=== PATIENT | female | born 1940 | race Caucasian/White ===

== ENCOUNTER 2018-09-27 07:20 | Day surgery (SDC) | payer BC ==
[2018-09-22 16:51] VITALS: BMI 29.0
[2018-09-27] MEDS ORDERED: PROPOFOL 20 ML ONE ×2 (07:46)
[2018-09-27] MEDS ORDERED: LIDOCAINE HCL/PF 2% SDV 5ML VIAL ONE (08:15)
[2018-09-27] MEDS ORDERED: GLUCAGON 1 MG KIT ONE (08:41)
[2018-09-27 09:42] VITALS: TEMP 98
[2018-09-27 10:24] VITALS: BP 119/52; PULSE 60
--- NOTE | 2018-09-29 16:37 | PATH ---
Surgical Pathology Report Patient Name: ANDRÉS ALLEN [facility]. Rec. #: [id number] /Age/Gender: 1940 (Age: 78) / F Account: [id number] Location: [facility] Taken: 09/27/2018 Received: 09/27/2018 Reported: 09/29/2018 Physicians: Nolan Henderson M.D. Specimen(s) Received A: HOT SNARE POLYPECTOMY CECUM B: BX POLYP DESCENDING COLON Clinical History Constipation Postoperative diagnosis: Polyps, sigmoid stricture, diverticulosis Final Diagnosis A. CECUM, POLYP, POLYPECTOMY: TUBULAR ADENOMA. B. DESCENDING COLON, POLYP, BIOPSY: HYPERPLASTIC POLYP. Electronically Signed Clementina Peña M.D. Gross Description A. Received in formalin, labeled "hot snare polypectomy cecum " is a vidal, irregular portion of soft tissue measuring 0.3 cm. in greatest dimension. The specimen is submitted in toto in one cassette. B. Received in formalin, labeled "biopsy polyp descending colon" is a vidal, irregular portion of soft tissue measuring 0.4 cm. in greatest dimension. The specimen is submitted in toto in one cassette. /09/28/2018 saudi09/28/2018
== END 2018-09-27 10:15 | disposition home or self-care (01) ==
LOC: FASU-ENDO 07:20
PROVIDERS: ATTEND Internal Medicine Gastroenterology
PROC: 0DBH8ZX Excision of Cecum, Via Natural or Artificial Opening Endoscopic, Diagnostic (ICD-10-PCS; 2018-09-27)
PROC: 0DBM8ZX Excision of Descending Colon, Via Natural or Artificial Opening Endoscopic, Diagnostic (ICD-10-PCS; principal; 2018-09-27 08:31)
DX: D12.0 Benign neoplasm of cecum (principal); K63.5 Polyp of colon; K59.00 Constipation, unspecified; K57.30 Diverticulosis of large intestine without perforation or abscess without bleeding; K58.8 Other irritable bowel syndrome
CPT/HCPCS: 88305-TC

== ENCOUNTER 2018-10-31 09:42 | Inpatient (IN) | payer BC ==
[2018-10-30 16:18] VITALS: BMI 26.6
[2018-10-31] MEDS ORDERED: ERTAPENEM SODIUM 1 GM in SODIUM CHLORIDE 50 ML IVPB ONE (10:16)
[2018-10-31] MEDS ORDERED: ERTAPENEM SODIUM 1 GM VIAL ONE (10:19)
[2018-10-31] MEDS ORDERED: KETOROLAC TROMETHAMINE 30 MG/1 ML VIAL ONE (10:37)
[2018-10-31] MEDS ORDERED: DEXAMETHASONE SOD PHOSPHATE 4 MG/1 ML VIAL ONE ×2 (10:37→13:39)
[2018-10-31] MEDS ORDERED: LIDOCAINE HCL/PF 2% SDV 5ML VIAL ONE ×2 (10:37→12:32)
[2018-10-31] MEDS ORDERED: ONDANSETRON 4 MG/2 ML VIAL ONE ×2 (10:37→17:25)
[2018-10-31] MEDS ORDERED: ROCURONIUM BROMIDE 50 MG/5 ML VIAL ONE ×2 (10:38→12:04)
[2018-10-31] MEDS: ALVIMOPAN 12 MG CAP PO SCH ×2 (11:00→23:56)
[2018-10-31] MEDS ORDERED: PROPOFOL 20 ML ONE ×2 (11:29→13:56)
--- NOTE | 2018-10-31 11:37 | HP ---
History & Physical Update - History History: No Change - Physical Physical: No Change - Assessment Assessment: No Change - Plan Plan: No Change
[2018-10-31] MEDS ORDERED: MIDAZOLAM HCL 2 MG/2 ML SINGLE DOSE VIAL ONE (11:47)
[2018-10-31] MEDS ORDERED: ERTAPENEM SODIUM 1 GM VIAL IVPB ONE (12:12)
[2018-10-31] MEDS ORDERED: GLYCOPYRROLATE 0.2 MG/1 ML VIAL ONE ×2 (12:16→13:51)
[2018-10-31] MEDS ORDERED: METOPROLOL TARTRATE 5 MG/5 ML VIAL ONE (12:16)
[2018-10-31] MEDS ORDERED: KETAMINE HCL 200 MG/20 ML VIAL ONE (12:27)
[2018-10-31] MEDS ORDERED: ONDANSETRON 4 MG/2 ML VIAL IVPUSH PRN (12:54)
[2018-10-31] MEDS ORDERED: LACTATED RINGERS SOLUTION 1,000 ML IV SCH (13:00)
[2018-10-31] MEDS ORDERED: HYDROmorphone *PCA* 10MG/50ML DISP.SYRIN PCA SCH (13:00)
[2018-10-31] MEDS ORDERED: NEOSTIGMINE METHYLSULFATE 0.5 MG/ML - 10 ML MDV ONE (13:51)
[2018-10-31] MEDS ORDERED: HYDROmorphone *PCA* 10MG/50ML DISP.SYRIN PCA ONE (14:18)
[2018-10-31] MEDS ORDERED: ePHEDrine SULFATE 50 MG/1 ML AMPULE ONE (14:35)
[2018-10-31] MEDS ORDERED: SODIUM CHLORIDE 0.9% P/F 10 ML VIAL IJ ONE (14:36)
[2018-10-31] MEDS ORDERED: ACETAMINOPHEN 1000 MG/100 ML VIAL (NON FORMULARY) IVPB ONE (15:21)
--- NOTE | 2018-10-31 15:26 | OP ---
Operative Note - Note: Operative Date: 10/31/18 Pre-Operative Diagnosis: colovesical fistula Operation: sigmoid colon resection with take down of colovesical fistula Surgeon: Torey Brown Electrical Instrument Maker: Rosanne Smith Anesthesiologist/SUPERVISOR COKE HANDLING: Vincent Mcintosh Anesthesia: General Specimens Removed: sigmoid colon Estimated Blood Loss (mls): 250 Drains, Volume Out (mls): 200 (sebastian) Fluid Volume Replaced (mls): 2,000 Operative Report Dictated: Yes
[2018-10-31] MEDS ORDERED: ACETAMINOPHEN INJECTION 100 ML IVPB ONE (15:35)
[2018-10-31] MEDS ORDERED: PIPERACILLIN/TAZOB 3.375 GM 3.375 GM in DEXTROSE 5%-WATER - 50 ML IVPB ONE (15:43)
--- NOTE | 2018-10-31 16:04 | CONSULT ---
Consultation: REQUESTING PROVIDER: Surgery team CONSULT REQUEST: We have been asked to medically evaluate this patient for (HTN) . 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 pt was schedulled for elective Surgery. Per Brother pt dis not have any headache , blurry vision , chest pain , N/V/D but she complains of chronic constipation Per brother no palpitation , sob , dysuria or hematuria , leg swelling was reported but he reports loss of appetite and 15 pounds weight loss. No recent travel and no sick contact POD#0 Vitals on my present HR 47, BP 124/38 MAP 61 , O2 sat 100% nonrebreathable mask , # PMHx : HTN # PSHx: unknown # Allergies : NKDA #Meds: Atenolol, Vit D , Chlorthalidone and norvasc # Social hx : denies any drugs , alcohol or tobacco , lives with her son and his girl friend , retired , worked office job in the past. # FHx: mother at 99 normal aging , father : unkown , has 2 sibling both are healthy with no medical conditions REVIEW OF SYSTEMS: unable to obtain as of now as pt still sleepy PHYSICAL EXAMINATION Vital Signs - 24 hr 10/31/18 10:38 Temperature 97.5 F L Pulse Rate 50 L Respiratory 16 Rate Blood Pressure 139/55 L O2 Sat by Pulse 98 Oximetry (%) GENERAL: Awake, alert, following comands sleepy , waking up from anesthesia in recover room HEAD: Normal with no signs of trauma. EYES: DEAN , sclera anicteric, conjunctiva clear. EARS, NOSE, THROAT: dry mucous membranes. NECK: , supple LUNGS: Breath sounds equal, clear to auscultation bilaterally.anteriorly , no wheezing HEART: sinus susan , normal S1 and S2 without murmur, rub or gallop. ABDOMEN: Soft, not distended, normoactive bowel sounds, no guarding, longitudinal mid line surgery covered with gauze LOWER EXTREMITIES: 2+ pulses, warm, well-perfused. No calf tenderness. No peripheral edema. NEUROLOGICAL: sleepy following commands , DEAN . no focal deficit Laboratory Results - last 24 hr 10/31/18 10/31/18 09:54 10:50 Blood Type A POSITIVE A POSITIVE Antibody Screen Negative Active Medications Generic Name Dose Route Start Last Admin Trade Name Vicq PRN Reason Stop Dose Admin Acetaminophen 1,000 mg 10/31/18 22:00 Ofirmev Injection - IVPB 11/01/18 10:01 Q6H CRAIG Alvimopan 12 mg 10/31/18 11:00 10/31/18 11:00 Entereg Capsule (Restricted) - PO 12 mg BID CRAIG Administration Amlodipine Besylate 5 mg 10/31/18 22:00 Norvasc - PO HS CRAIG Atenolol 50 mg 10/31/18 22:00 Tenormin - PO HS CRAIG Chlorthalidone 25 mg 10/31/18 22:00 Hygroton - PO HS CRAIG Enoxaparin Sodium 30 mg 11/01/18 10:00 Lovenox - SQ DAILY CRAIG Fentanyl 25 mcg 10/31/18 12:54 Sublimaze Injection - IVPUSH [id number] PRN PAIN-PACU ORDER X 4 DOSES ONLY Hydromorphone HCl 10 mg 10/31/18 13:00 Dilaudid Inspector Line - WORK ORDER CLERK 11/07/18 12:54 WORK ORDER CLERK CRAIG Protocol Lactated Ringer's 1,000 mls @ 75 mls/hr 10/31/18 13:00 Lactated Ringers Solution IV ASDIR CRAIG Piperacillin Sod/Tazobactam 50 mls @ 100 mls/hr 10/31/18 15:43 Sod 3.375 gm/ Dextrose IVPB 10/31/18 16:12 ONCE ONE Protocol Ondansetron HCl 4 mg 10/31/18 12:54 Zofran Injection IVPUSH Q6H PRN NAUSEA AND/OR VOMITING ASSESSMENT/PLAN: 78 year old female with h.o HTN and one month of LLQ abdominal pain was fpound to have colovesicular fistula presented to hospital for elective surgery Sigmoidectomy and colovesicular resection. we were consulted to manage HTN. # POD# 0 , * S/P Sigmoidectomy and colovesicular resection , lost 250 CC blood and received 2 L RL fluids , Spencerron Dr Lema * NPO till pass flatus * IV fluids per surgery team LR@ 75 CC/hr , received 2 L RL in OR and 500 LR Bolus in Paccu room , continue with maintenance fluids. * Abx prophylaxis per surgery team , Zosyn one time and Ertapinim once * Zofran for Nausea , EKG ordered to check QTC * Pain meds per surgery WORK ORDER CLERK Dilauded, Febtanyl injection and Tylenol IV as needed * Monitor I& O , sebastian in place , daily weight , urine out put 200 CC so far * * # HTN , #susan cardia 47 hr * normotensive during the procedure and in recovery room * hold BB as pt is susan cardic till HR > 90 * Hold diuretics chlorthalidone for the first 24 hours * hold norvasc 5 mg po daily , resume if bp > 150/90 # FEN * RL @ 75 CC and boluses as needed to maintain BP * E: monitor lytes * N: NPO till pass flatus except meds with sip of water # Proph * DVTS: Lovenox 30 mg SQ daily #Dispo * M/S # Full code next of kin is her son Dilip Ortega [phone] Dispo: We will continue to follow the patient. Thank you for this consultative opportunity. Visit type - Emergency Visit Emergency Visit: Yes ED Registration Date: 10/31/18 Care time: The patient presented to the Emergency Department on the above date and was hospitalized for further evaluation of their emergent condition. - New Patient This patient is new to me today: Yes Date on this admission: 10/31/18 - Critical Care Critical Care patient: No
--- NOTE | 2018-10-31 17:22 | PN ---
Teaching Attending Note Name of Resident: Stephen Bangura ATTENDING PHYSICIAN STATEMENT I saw and evaluated the patient. I reviewed the resident's note and discussed the case with the resident. I agree with the resident's findings and plan as documented. SUBJECTIVE: Drowsy post-op but rousable to O x 3. No complaints. Pain well controlled. OBJECTIVE: Afebrile, Bradycardic, Hemodynamically Stable. Last Vital Signs Temp Pulse Resp BP Pulse Ox 97.5 F L 47 L 13 139/53 L 100 10/31/18 10:38 10/31/18 15:14 10/31/18 15:14 10/31/18 15:14 10/31/18 15:14 HEENT- Atraumatic, Normocephalic. Heart - S1, S2, Sergei Lungs - decreased air entry at bases Abdomen - Midline laparotomy site dressed. Extremities - No edema, no calf tenderness Laboratory Results - last 24 hr 10/31/18 10/31/18 09:54 10:50 Blood Type A POSITIVE A POSITIVE Antibody Screen Negative Current Medications Generic Name Dose Route Start Last Admin Trade Name Freq PRN Reason Stop Dose Admin Acetaminophen 1,000 mg 10/31/18 22:00 Ofirmev Injection - IVPB 11/01/18 10:01 Q6H CRAIG Alvimopan 12 mg 10/31/18 11:00 10/31/18 11:00 Entereg Capsule (Restricted) - PO 12 mg BID CRAIG Administration Amlodipine Besylate 5 mg 11/01/18 10:00 Norvasc - PO DAILY CRAIG Enoxaparin Sodium 30 mg 11/01/18 10:00 Lovenox - SQ DAILY CRAIG Fentanyl 25 mcg 10/31/18 12:54 Sublimaze Injection - IVPUSH [id number] PRN PAIN-PACU ORDER X 4 DOSES ONLY Hydromorphone HCl 10 mg 10/31/18 13:00 10/31/18 15:20 Dilaudid [employer] Salesperson - BLADE BENDER FURNACE TENDER 11/07/18 12:54 10 mg BLADE BENDER FURNACE TENDER CRAIG Administration Protocol Lactated Ringer's 1,000 mls @ 75 mls/hr 10/31/18 13:00 10/31/18 15:20 Lactated Ringers Solution IV 0 mls ASDIR CRAIG Administration Ondansetron HCl 4 mg 10/31/18 12:54 Zofran Injection IVPUSH Q6H PRN NAUSEA AND/OR VOMITING Home Medications Medication Instructions Recorded Amlodipine Besylate [Norvasc -] 5 mg PO HS 10/31/15 Atenolol/Chlorthalidone 1 each PO HS 10/31/15 [Atenolol-Chlorthalidone 50-25] Cholecalciferol (Vitamin D3) 2 cap PO HS 10/31/15 [Vitamin D3] ASSESSMENT AND PLAN: 78 year old female with history of HTN, admitted s/p elective Colovesicular Fistula repair by Surgery. Medicine consulted for medical management of HTN. 1. HTN - normally on Atenolol, Chlorthalidone, Norvasc Currently bradycardic - hold BB Will hold Chlorthalidone in favor of gentle IV hydration bailee-operatively. Continue Norvasc. 2. Colovesicular Fistula s/p Repair Currently post-op s/p sigmoidectomy and colovesicular resection NPO, IV Fluids Abx prophylaxis as per Surgery/ID Pain medications as per Surgery - on Dilaudid BLADE BENDER FURNACE TENDER Incentive Spirometry and DVT Px with Lovenox. Thank you for the kind consideration of this consultation. The medicine service will be happy to follow for BP management.
[2018-10-31] MEDS ORDERED: PROMETHAZINE HCL 25 MG/1 ML VIAL ONE (17:53)
[2018-10-31] MEDS ORDERED: PROMETHAZINE HCL 25 MG/1 ML VIAL IVPB PRN (18:52)
[2018-10-31] MEDS ORDERED: SODIUM CHLORIDE 500 ML IV ONE (19:00)
--- NOTE | 2018-10-31 20:30 | SURG ---
Surgery Medicaid Eligibility Specialist Note Medicaid Eligibility Specialist: Rosanne Smith PA-C Date of Service: 10/31/18 Diagnosis: colovesicular fistula, sigmoid diverticulitits Procedure: sigmoid colon resection with colovesicular fistula takedown I was present for the entirety of the operative procedure. For further detail, please refer to operative report. Visit type - Case Type Case Type: Scheduled - Emergency Emergency Visit: No - New patient This patient is new to me today: Yes Date on this admission: 10/31/18 - Critical Care Critical Care patient: No
[2018-10-31 20:37] LABS: BASO % 0.1 % (0-2.0); HEMATOCRIT 27.7 % (32.4-45.2); HEMOGLOBIN 8.7 GM/dL (10.7-15.3); LYMPH % 2.6 % (8-40); MCH 28.7 pg (25.7-33.7); MCHC 31.5 g/dl (32.0-36.0); MEAN CELL VOLUME 91.2 fl (80-96); MEAN PLT VOLUME 7.7 fl (7.5-11.1); MONO % 4.8 % (3.8-10.2); NEUT % 92.5 % (42.8-82.8); PLATELET COUNT 284 K/MM3 (134-434); RBC 3.03 M/mm3 (3.60-5.2); RDW 14.4 % (11.6-15.6); WHITE BLOOD COUNT 23.2 K/mm3 (4.0-10.0)
[2018-10-31 21:06] LABS: ALBUMIN 2.6 g/dl (3.4-5.0); BILIRUBIN,TOTAL 0.4 mg/dL (0.2-1); CALCIUM 8.6 mg/dL (8.5-10.1); CREATININE 1.4 mg/dL (0.55-1.3); POTASSIUM 3.6 mmol/L (3.5-5.1)
--- NOTE | 2018-10-31 21:39 | OP ---
DATE OF OPERATION: 10/31/2018 PREOPERATIVE DIAGNOSIS: Colovesical fistula secondary to sigmoid perforation. POSTOPERATIVE DIAGNOSIS: Colovesical fistula secondary to sigmoid perforation. OPERATIVE PROCEDURE: Exploratory laparotomy, sigmoid colectomy, left tubo-ovarian cystectomy, inspection of the bladder, and end-to-end anastomosis of the left colon. SURGEON: Torey Brown MD HELP DESK OPERATOR: LEANNA Lay ANESTHESIA: General endotracheal intubation. INDICATION FOR PROCEDURE: This 78-year-old female was admitted complaining of fecal discharge from the urine, and patient had a preoperative CAT scan that revealed a diverticular abscess perforating under the bladder. With this, the patient was brought to the operating room after preparation was done with GoLYTELY. Patient was given intravenous antibiotics. Abdomen was prepped and draped. Midline incision was made, and examination revealed a large mass of the left colon, sigmoid colon which was penetrating into the bladder. Also, the ovary of the left side was found to be incorporated with the tube and this mass. Lateral dissection of the left colon was done, sigmoid colon, and then, care was taken to avoid any injury to the ureter which was clearly identified. Part of the mass was dissected away from the colon and kept in the field of vision all the time. Following this, the dissection was done of the peritoneum, and the dissection was carried down to the rectum. Again, the colon, which was adherent to the bladder, was removed, and the bladder was distended with 0.5 L of saline to make sure there was no obvious leak, which was not seen. The left ovary and the tube was found to be part of the mass, and so, it was taken at the fundus of the uterus and incorporated and part of the mass. Then, the sigmoid colon was divided using a MADHU, and then, the dissection was done anterior to the sacrum. It was lifted away from the sacral promontory, and it was divided at the rectum level where the colon was found to be of normal histology. Once it was divided, the specimen was sent out, and the other part of the colon which was the proximal colon, which was stapled, was opened. The left colon was mobilized a little bit more to prevent any tension. An end-to-end anastomosis was done with 2-0 Vicryl interrupted, and a non-crushing clamp was used of the colon to prevent any spillage, which was opened. A piece of the omentum was wrapped around the anastomosis, and after adequate hemostasis, abdominal wall was closed with number 1 running suture and the skin with de. Estimated blood loss was about 250 mL. No complications were encountered, and patient went to the recovery room in stable condition. Jing [id number]
[2018-10-31] MEDS ORDERED: PT OWN MED DRAWER 7, Y5N ONE (21:56)
[2018-10-31] MEDS ORDERED: CHLORTHALIDONE 25 MG TABLET PO SCH (22:00)
[2018-10-31] MEDS ORDERED: amLODIPine BESYLATE 5 MG TABLET (FP) PO SCH (22:00)
[2018-10-31] MEDS ORDERED: ATENOLOL 25 MG TABLET (FP) PO SCH (22:00)
[2018-10-31] MEDS ORDERED: DEXTROSE 5%-WATER - 50 ML IVPB ONE (22:36)
[2018-10-31] MEDS ORDERED: PIPERACILLIN/TAZOBACTAM 3.375 GM VIAL IVPB ONE (22:36)
[2018-10-31] MEDS: ACETAMINOPHEN 1000 MG/100 ML VIAL (NON FORMULARY) IVPB SCH (22:44)
[2018-10-31] MEDS: PIPERACILLIN/TAZOB 3.375 GM 3.375 GM in DEXTROSE 5%-WATER - 50 ML IVPB SCH (22:44)
[2018-11-01] MEDS ORDERED: DEXTROSE 5%-WATER - 50 ML IVPB ONE ×3 (01:02→17:48)
[2018-11-01] MEDS ORDERED: PIPERACILLIN/TAZOBACTAM 3.375 GM VIAL IVPB ONE ×3 (01:02→17:48)
[2018-11-01] MEDS: PIPERACILLIN/TAZOB 3.375 GM 3.375 GM in DEXTROSE 5%-WATER - 50 ML IVPB SCH ×3 (01:15→17:52)
[2018-11-01] MEDS: ACETAMINOPHEN 1000 MG/100 ML VIAL (NON FORMULARY) IVPB SCH ×2 (04:40→10:22)
[2018-11-01 07:20] LABS: HEMOGLOBIN 7.9 GM/dL (10.7-15.3); MCH 29.6 pg (25.7-33.7); MCHC 33.1 g/dl (32.0-36.0); MEAN CELL VOLUME 89.6 fl (80-96); MEAN PLT VOLUME 7.5 fl (7.5-11.1); PLATELET COUNT 240 K/MM3 (134-434); RBC 2.68 M/mm3 (3.60-5.2); RDW 14.3 % (11.6-15.6); WHITE BLOOD COUNT 19.3 K/mm3 (4.0-10.0)
[2018-11-01 07:47] LABS: CALCIUM 8.5 mg/dL (8.5-10.1); CREATININE 1.8 mg/dL (0.55-1.3); MAGNESIUM 1.7 mg/dL (1.8-2.4); PHOSPHOROUS 5.6 mg/dL (2.5-4.9)
--- NOTE | 2018-11-01 08:13 | SPA.POSTOP ---
- POST-OP NOTE POD #1 s/p sigmoid colon resection with colovesicula fistula take-down No acute events since surgical procedure per RN notes. RN informs me that no urine output overnight. Patient resting comfortably. States she has minimal pain therefore she hasn't used her CAP MAKER. Hasn't been OOB yet. Denies n/v/f/c, CP or SOB. Last Vital Signs Temp Pulse Resp BP Pulse Ox 97.8 F 48 L 18 102/38 L 96 11/01/18 06:00 11/01/18 06:00 11/01/18 06:00 11/01/18 06:00 11/01/18 04:21 CBC, BMP 11/01/18 06:42 11/01/18 06:42 OUTPUT 10/31/18 11/01/18 23:40 06:00 Sebastian 0 200 PE General: No acute distress. Pulm: CTA bilat Cor: RRR Abd: Soft. Dressing c/d/i. Bowel sounds absent : sebastian to gravity (clear) LE: Soft, non-tender bilat. SCD's bilat. Problem List - Problems (1) Colovesical fistula Assessment/Plan: POD #1 s/p Colovesical fistula takedown, sigmoid resection w/ handsewn anastamosis. Goals for today: 1. OOB and ambulate 2. Re-evaluate pain AFTER she ambulates...if minimal pain, we can dc CAP MAKER and begin IV prn management. 3. Monitor Urine output 4. Increased IVF to 150mL/hr 5. GI PPX 6. Monitor H/H - CBC in AM ordered 7. DVT PPX via SQ Lovenox & SCDs 8. Cont Entereg 12 mg PO BID (dc once pt passes flatus or receives max of 15 doses) 9. Await for bowel function to be restored prior too beginning clear liquid diet. 10. f/u repeat AXR (post-op film didn't include entire abd/pelvis) Above plan discussed with Dr. Brown and agrees Code(s): N32.1 - VESICOINTESTINAL FISTULA Visit type - Case Type Case Type: Scheduled - New patient This patient is new to me today: Yes Date on this admission: 11/01/18
[2018-11-01] MEDS ORDERED: MAGNESIUM SULF 50% (8.12 MEQ/2 ML-1 GM VIAL) IVPB ONE (09:15)
[2018-11-01] MEDS ORDERED: SODIUM CHLORIDE 500 ML IV STA (09:42)
[2018-11-01] MEDS ORDERED: amLODIPine BESYLATE 5 MG TABLET (FP) PO SCH (10:00)
[2018-11-01] MEDS ORDERED: ENOXAPARIN NA (PORCINE) 30 MG/0.3 ML DISP.SYRIN SQ SCH (10:00)
--- NOTE | 2018-11-01 10:15 | CON.ID ---
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 pt was schedulled for elective Surgery. 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 TEENAGER Home Medications - Allergies Allergies/Adverse Reactions: Allergies Allergy/AdvReac Type Severity Reaction Status Date / Time No Known Drug Allergies Allergy Verified 10/31/18 10:40 ciprofloxacin [From Cipro] AdvReac Intermediate Verified 10/31/18 10:41 - Home Medications Home Medications: Ambulatory Orders Amlodipine Besylate [Norvasc -] 5 mg PO HS 10/31/15 Atenolol/Chlorthalidone [Atenolol-Chlorthalidone 50-25] 1 each PO HS 10/31/15 Cholecalciferol (Vitamin D3) [Vitamin D3] 2 cap PO HS 10/31/15 Review of Systems - Review of Systems Constitutional: reports: No Symptoms Eyes: reports: No Symptoms HENT: reports: No Symptoms Neck: reports: No Symptoms Cardiovascular: reports: No Symptoms Respiratory: reports: No Symptoms Gastrointestinal: reports: Abdominal Pain Genitourinary: reports: No Symptoms Musculoskeletal: reports: No Symptoms Integumentary: reports: No Symptoms Neurological: reports: No Symptoms Endocrine: reports: No Symptoms Hematology/Lymphatic: reports: No Symptoms Psychiatric: reports: No Symptoms Physical Exam Vital Signs: Vital Signs Temperature 97.8 F 11/01/18 06:00 Pulse Rate 48 L 11/01/18 06:00 Respiratory Rate 18 11/01/18 06:00 Blood Pressure 102/38 L 11/01/18 06:00 O2 Sat by Pulse Oximetry (%) 96 11/01/18 04:21 Constitutional: Yes: Well Nourished, No Distress, Calm Cardiovascular: Yes: Regular Rate and Rhythm Respiratory: Yes: Regular, CTA Bilaterally Gastrointestinal: Yes: Tenderness, Other (absent bowel sounds) Musculoskeletal: Yes: WNL Extremities: Yes: WNL Wound/Incision: Yes: Dressing Dry and Intact Neurological: Yes: Alert, Oriented Psychiatric: Yes: Alert, Oriented Labs: CBC, BMP 11/01/18 06:42 11/01/18 06:42 Assessment/Plan 78 year old female with history of HTN, admitted s/p elective Colovesicular Fistula repair by Surgery. 1. HTN 2. Colovesicular Fistula s/p Repair abd pain leukocytosis plan hydration abx wound care rest as per the team await for gi function monitor wbc
[2018-11-01] MEDS ORDERED: PT OWN MED DRAWER 7, Y5N ONE (10:19)
[2018-11-01] MEDS: ALVIMOPAN 12 MG CAP PO SCH ×2 (10:26→21:55)
[2018-11-01] MEDS: amLODIPine BESYLATE 5 MG TABLET (FP) PO SCH (10:26)
[2018-11-01] MEDS: LACTATED RINGERS SOLUTION 1,000 ML IV SCH (10:26)
[2018-11-01] MEDS ORDERED: KETOROLAC TROMETHAMINE 15 MG/ML VIAL IVPUSH PRN (12:30)
[2018-11-01] MEDS ORDERED: ACETAMINOPHEN 1000 MG/100 ML VIAL (NON FORMULARY) IVPB PRN (12:31)
--- NOTE | 2018-11-01 15:32 | PN ---
Physical Exam: SUBJECTIVE: Patient seen and examined at bedside. No other acute events overnight. Pt states she feels better. Still not passing gas, has minimal urine output. OBJECTIVE: Vital Signs Temperature 97.8 F 11/01/18 06:00 Pulse Rate 48 L 11/01/18 06:00 Respiratory Rate 18 11/01/18 09:00 Blood Pressure 102/38 L 11/01/18 06:00 O2 Sat by Pulse Oximetry (%) 96 11/01/18 09:00 GENERAL: Awake and alert. Responds to commands. Pleasant and cooperative. HEENT: AT/NC. Dry mucus membranes. LUNGS: CTA B/L. No wheezes or crackles noted. HEART: RRR. Normal S1, S2. No murmurs noted. ABDOMEN: Soft, NT/ND. Abd dressing c/d/i. No drainage noted. LOWER EXTREMITIES: 2+ pulses, warm, well-perfused. No calf tenderness. No peripheral edema. NEUROLOGICAL: Alert, follows commands. CBC, BMP 11/01/18 06:42 11/01/18 06:42 Active Medications Acetaminophen (Ofirmev Injection -) 1,000 mg IVPB Q6H PRN PRN Reason: PAIN Alvimopan (Entereg Capsule (Restricted) -) 12 mg PO BID [facility] Last Admin: 11/01/18 10:26 Dose: 12 mg Amlodipine Besylate (Norvasc -) 5 mg PO DAILY [facility] Last Admin: 11/01/18 10:26 Dose: 5 mg Enoxaparin Sodium (Lovenox -) 30 mg SQ DAILY [facility] Fentanyl (Sublimaze Injection -) 25 mcg IVPUSH [id number] PRN PRN Reason: PAIN-PACU ORDER X 4 DOSES ONLY Piperacillin Sod/Tazobactam (Sod 3.375 gm/ Dextrose) 50 mls @ 100 mls/hr IVPB Q8H-IV CRAIG; Protocol Last Admin: 11/01/18 10:22 Dose: 100 mls/hr Lactated Ringer's (Lactated Ringers Solution) 1,000 mls @ 125 mls/hr IV ASDIR [facility] Last Admin: 11/01/18 10:26 Dose: 125 mls/hr Ketorolac Tromethamine (Toradol Injection -) 15 mg IVPUSH Q6H PRN PRN Reason: PAIN LEVEL 1-5 Stop: 11/06/18 12:29 Ondansetron HCl (Zofran Injection) 4 mg IVPUSH Q6H PRN PRN Reason: NAUSEA AND/OR VOMITING Last Admin: 10/31/18 17:25 Dose: 4 mg Promethazine HCl (Phenergan Injection -) 6.25 mg IVPB ONCE PRN PRN Reason: NAUSEA IMAGING: * Abd xray (11/01/18): Nonspecific bowel pattern w/ midline de and LLQ clips. Radioopaque foreign body other than de and clips is not seen. ASSESSMENT/PLAN: 78F pmhx of HTN and one month of LLQ abdominal pain was fpound to have colovesicular fistula presented to hospital for elective surgery Sigmoidectomy and colovesicular resection. we were consulted to manage HTN. #HTN Cont home meds: Amlodipine 5 mg QD -cont to monitor BP #ADAN -Cr today 1.8, cont to trend BMP -500cc bolus of NS given -IVf #S/p colovesicular repair, POD 1 -NPO/IVf, monitor return of bowel fxn -Pain control per surg -Per ID, cont Zosyn -IS/PT eval/OOB/ambulate -Zofran for nausea -Gold in place, daily weights, monitor urine output #Bradycardia; Resolved. #FEN LR @ 150 and boluses as needed to maintain BP E: monitor lytes N: NPO till pass flatus except meds with sip of water #DVT Ppx -Lovenox Dispo -Cont to monitor on med surg -full code -next of kin is her son Dilip Ortega [phone] Visit type - Emergency Visit Emergency Visit: Yes ED Registration Date: 10/31/18 Care time: The patient presented to the Emergency Department on the above date and was hospitalized for further evaluation of their emergent condition. - New Patient This patient is new to me today: Yes Date on this admission: 11/01/18 - Critical Care Critical Care patient: No
--- NOTE | 2018-11-01 17:26 | PN ---
Teaching Attending Note Name of Resident: Nazia Remy ATTENDING PHYSICIAN STATEMENT I saw and evaluated the patient. I reviewed the resident's note and discussed the case with the resident. I agree with the resident's findings and plan as documented. SUBJECTIVE: Mild abdominal discomfort - pain controlled. No flatus/BMs. No CP/ palpitations/lightheadedness OBJECTIVE: Afebrile, Hemodynamically Stable. Bradycardic. Asymptomatic. Last Vital Signs Temp Pulse Resp BP Pulse Ox 97.9 F 45 L 18 102/45 L 96 11/01/18 14:00 11/01/18 14:00 11/01/18 14:00 11/01/18 14:00 11/01/18 09:00 Heart - S1, S2, Sergei Lungs - decreased air entry at bases Abdomen - Midline laparotomy site dressed. Extremities - No edema, no calf tenderness Laboratory Results - last 24 hr 10/31/18 10/31/18 11/01/18 19:30 19:30 06:42 WBC 23.2 H 19.3 H RBC 3.03 L 2.68 L Hgb 8.7 L 7.9 L Hct 27.7 L D 24.0 L MCV 91.2 89.6 MCH 28.7 29.6 MCHC 31.5 L 33.1 RDW 14.4 14.3 Plt Count 284 D 240 MPV 7.7 D 7.5 Absolute Neuts (auto) 21.5 H Total Counted 100 Neutrophils % 92.5 H Neutrophils % (Manual) 78.0 Band Neutrophils % 8.0 Lymphocytes % 2.6 L Lymphocytes % (Manual) 4.0 L Monocytes % 4.8 Monocytes % (Manual) 10 Eosinophils % 0.0 Basophils % 0.1 Nucleated RBC % 0 Sodium 140 Potassium 3.6 Chloride 105 Carbon Dioxide 26 Anion Gap 9 BUN 25 H Creatinine 1.4 H Est GFR (CKD-EPI)AfAm 41.03 Est GFR (CKD-EPI)NonAf 35.40 Random Glucose 148 H Calcium 8.6 Phosphorus Magnesium Total Bilirubin 0.4 AST 22 ALT 24 Alkaline Phosphatase 74 Total Protein 5.0 L Albumin 2.6 L 11/01/18 06:42 WBC RBC Hgb Hct MCV MCH MCHC RDW Plt Count MPV Absolute Neuts (auto) Total Counted Neutrophils % Neutrophils % (Manual) Band Neutrophils % Lymphocytes % Lymphocytes % (Manual) Monocytes % Monocytes % (Manual) Eosinophils % Basophils % Nucleated RBC % Sodium 141 Potassium 4.0 Chloride 103 Carbon Dioxide 28 Anion Gap 10 BUN 28 H Creatinine 1.8 H Est GFR (CKD-EPI)AfAm 30.28 Est GFR (CKD-EPI)NonAf 26.12 Random Glucose 144 H Calcium 8.5 Phosphorus 5.6 H Magnesium 1.7 L Total Bilirubin AST ALT Alkaline Phosphatase Total Protein Albumin Current Medications Generic Name Dose Route Start Last Admin Trade Name Freq PRN Reason Stop Dose Admin Acetaminophen 1,000 mg 11/01/18 12:31 Ofirmev Injection - IVPB Q6H PRN PAIN Alvimopan 12 mg 10/31/18 11:00 11/01/18 10:26 Entereg Capsule (Restricted) - PO 12 mg BID [facility] Administration Amlodipine Besylate 5 mg 11/01/18 10:00 11/01/18 10:26 Norvasc - PO 5 mg DAILY [facility] Administration Enoxaparin Sodium 30 mg 11/01/18 10:00 Lovenox - SQ DAILY [facility] Fentanyl 25 mcg 10/31/18 12:54 Sublimaze Injection - IVPUSH [id number] PRN PAIN-PACU ORDER X 4 DOSES ONLY Piperacillin Sod/Tazobactam 50 mls @ 100 mls/hr 10/31/18 22:30 11/01/18 10:22 Sod 3.375 gm/ Dextrose IVPB 100 mls/hr Q8H-IV [facility] Administration Protocol Lactated Ringer's 1,000 mls @ 125 mls/hr 11/01/18 08:29 11/01/18 10:26 Lactated Ringers Solution IV 125 mls/hr ASDIR [facility] Administration Ketorolac Tromethamine 15 mg 11/01/18 12:30 Toradol Injection - IVPUSH 11/06/18 12:29 Q6H PRN PAIN LEVEL 1-5 Ondansetron HCl 4 mg 10/31/18 12:54 10/31/18 17:25 Zofran Injection IVPUSH 4 mg Q6H PRN Administration NAUSEA AND/OR VOMITING Promethazine HCl 6.25 mg 10/31/18 18:52 Phenergan Injection - IVPB ONCE PRN NAUSEA ASSESSMENT AND PLAN: 78 year old female with history of HTN, admitted s/p elective Colovesicular Fistula repair by Surgery. Medicine consulted for medical management of HTN. 1. HTN - normally on Atenolol, Chlorthalidone, Norvasc Currently bradycardic with borderline BP - continue to hold BB Will hold Chlorthalidone in favor of gentle IV hydration bailee-operatively. Continue Norvasc if BP allows. 2. Colovesicular Fistula s/p Repair Currently POD 1 s/p sigmoidectomy and colovesicular resection Diet advancement as per Surgery Abx as per Surgery/ID Pain management as per Surgery Incentive Spirometry and DVT Px with Lovenox. 3. ADAN - BUN/Creat 25/1.4 --> 28/1.8 Intensify IV hydration and monitor. If any worsening, will request Renal imaging. 4. Acute Blood Loss Anemia sec to Surgery H/H 7.9/24 Recommend Iron supplementation. 5. Hypomagnesemia - repleted.
[2018-11-02] MEDS ORDERED: PIPERACILLIN/TAZOBACTAM 3.375 GM VIAL IVPB ONE ×4 (01:11→22:53)
[2018-11-02] MEDS ORDERED: DEXTROSE 5%-WATER - 50 ML IVPB ONE ×4 (01:12→22:54)
[2018-11-02] MEDS: PIPERACILLIN/TAZOB 3.375 GM 3.375 GM in DEXTROSE 5%-WATER - 50 ML IVPB SCH ×3 (01:19→19:02)
--- NOTE | 2018-11-02 06:44 | PN ---
Physical Exam: SUBJECTIVE: Patient seen and examined at bedside. No acute events overnight. Pt has adequate urine output. Denies burleson/d, cp, sob, urinary/bowel symptoms. Admits to some abdominal soreness, but pain is well-controlled. OBJECTIVE: Vital Signs Temperature 100.2 F H 11/02/18 01:00 Pulse Rate 52 L 11/02/18 01:00 Respiratory Rate 18 11/02/18 01:00 Blood Pressure 105/46 L 11/02/18 01:00 O2 Sat by Pulse Oximetry (%) 96 11/01/18 21:00 GENERAL: Awake and alert. Responds to commands. Pleasant and cooperative. HEENT: AT/NC. Dry mucus membranes. LUNGS: CTA B/L. No wheezes or crackles noted. HEART: RRR. Normal S1, S2. No murmurs noted. ABDOMEN: Soft, ND. Abd dressing c/d/i. +tenderness to mild palpation. LOWER EXTREMITIES: 2+ pulses, warm, well-perfused. No calf tenderness. No peripheral edema. NEUROLOGICAL: Alert, follows commands. CBC, BMP 11/01/18 06:42 11/01/18 06:42 Active Medications Acetaminophen (Ofirmev Injection -) 1,000 mg IVPB Q6H PRN PRN Reason: PAIN Alvimopan (Entereg Capsule (Restricted) -) 12 mg PO BID [facility] Last Admin: 11/01/18 21:55 Dose: 12 mg Amlodipine Besylate (Norvasc -) 5 mg PO DAILY [facility] Last Admin: 11/01/18 10:26 Dose: 5 mg Enoxaparin Sodium (Lovenox -) 30 mg SQ DAILY [facility] Fentanyl (Sublimaze Injection -) 25 mcg IVPUSH [id number] PRN PRN Reason: PAIN-PACU ORDER X 4 DOSES ONLY Piperacillin Sod/Tazobactam (Sod 3.375 gm/ Dextrose) 50 mls @ 100 mls/hr IVPB Q8H-IV [facility]; Protocol Last Admin: 11/02/18 01:19 Dose: 100 mls/hr Lactated Ringer's (Lactated Ringers Solution) 1,000 mls @ 125 mls/hr IV ASDIR [facility] Last Admin: 11/01/18 10:26 Dose: 125 mls/hr Ketorolac Tromethamine (Toradol Injection -) 15 mg IVPUSH Q6H PRN PRN Reason: PAIN LEVEL 1-5 Stop: 11/06/18 12:29 Ondansetron HCl (Zofran Injection) 4 mg IVPUSH Q6H PRN PRN Reason: NAUSEA AND/OR VOMITING Last Admin: 10/31/18 17:25 Dose: 4 mg Promethazine HCl (Phenergan Injection -) 6.25 mg IVPB ONCE PRN PRN Reason: NAUSEA IMAGING: * Abd xray (11/01/18): Nonspecific bowel pattern w/ midline de and LLQ clips. Radioopaque foreign body other than de and clips is not seen. 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 we were consulted to manage HTN. #HTN Cont home meds: Amlodipine 5 mg QD, BP permitting -cont to monitor BP -hold Chlorthalidone #ADAN -Cr today 1.8, cont to trend BMP -IVf #S/p colovesicular repair, POD 1 -NPO/IVf, monitor return of bowel fxn -Pain control per surg -Per ID, cont Zosyn -IS/PT eval/OOB/ambulate -Zofran for nausea -Gold in place, daily weights, monitor urine output #Bradycardia; HR 87 today. #FEN LR @ 125 and boluses as needed to maintain BP E: monitor lytes N: NPO till pass flatus except meds with sip of water #DVT Ppx -Lovenox 30 QD Dispo -Cont to monitor on med surg -full code -next of kin is her son Dilip Ortega [phone] Visit type - Emergency Visit Emergency Visit: Yes ED Registration Date: 10/31/18 Care time: The patient presented to the Emergency Department on the above date and was hospitalized for further evaluation of their emergent condition. - New Patient This patient is new to me today: No - Critical Care Critical Care patient: No
[2018-11-02] MEDS: ALVIMOPAN 12 MG CAP PO SCH ×2 (10:38→22:16)
[2018-11-02] MEDS: amLODIPine BESYLATE 5 MG TABLET (FP) PO SCH (10:38)
--- NOTE | 2018-11-02 12:36 | PN ---
Progress Note, Physician History of Present Illness: patient stable some tenderness at the operated site still no gi function - Current Medication List Current Medications: Active Medications Acetaminophen (Ofirmev Injection -) 1,000 mg IVPB Q6H PRN PRN Reason: PAIN Alvimopan (Entereg Capsule (Restricted) -) 12 mg PO BID [facility] Last Admin: 11/02/18 10:38 Dose: 12 mg Amlodipine Besylate (Norvasc -) 5 mg PO DAILY [facility] Last Admin: 11/02/18 10:38 Dose: 5 mg Enoxaparin Sodium (Lovenox -) 30 mg SQ DAILY [facility] Fentanyl (Sublimaze Injection -) 25 mcg IVPUSH [id number] PRN PRN Reason: PAIN-PACU ORDER X 4 DOSES ONLY Piperacillin Sod/Tazobactam (Sod 3.375 gm/ Dextrose) 50 mls @ 100 mls/hr IVPB Q8H-IV [facility]; Protocol Last Admin: 11/02/18 10:38 Dose: 100 mls/hr Lactated Ringer's (Lactated Ringers Solution) 1,000 mls @ 125 mls/hr IV ASDIR [facility] Last Admin: 11/01/18 10:26 Dose: 125 mls/hr Ketorolac Tromethamine (Toradol Injection -) 15 mg IVPUSH Q6H PRN PRN Reason: PAIN LEVEL 1-5 Stop: 11/06/18 12:29 Ondansetron HCl (Zofran Injection) 4 mg IVPUSH Q6H PRN PRN Reason: NAUSEA AND/OR VOMITING Last Admin: 10/31/18 17:25 Dose: 4 mg Promethazine HCl (Phenergan Injection -) 6.25 mg IVPB ONCE PRN PRN Reason: NAUSEA - Objective Vital Signs: Vital Signs Temperature 98.8 F 11/02/18 10:00 Pulse Rate 54 L 11/02/18 10:00 Respiratory Rate 16 11/02/18 10:00 Blood Pressure 115/48 L 11/02/18 10:00 O2 Sat by Pulse Oximetry (%) 96 11/01/18 21:00 Constitutional: Yes: No Distress, Calm Cardiovascular: Yes: Regular Rate and Rhythm Respiratory: Yes: Regular, CTA Bilaterally Gastrointestinal: Yes: Other (absent bowel sounds) Neurological: Yes: Alert, Oriented Psychiatric: Yes: Alert, Oriented Labs: CBC, BMP 11/01/18 06:42 11/01/18 06:42 Assessment/Plan 78 year old female with history of HTN, admitted s/p elective Colovesicular Fistula repair by Surgery. 1. HTN 2. Colovesicular Fistula s/p Repair abd pain leukocytosis plan hydration abx wound care rest as per the team await for gi function monitor wbc
--- NOTE | 2018-11-02 13:46 | PN ---
Progress Note, Physician Chief Complaint: s.p colon resection post op day two History of Present Illness: under general anesthesia with numerical control machine operator for post op pain control. - Current Medication List Current Medications: Active Medications Acetaminophen (Ofirmev Injection -) 1,000 mg IVPB Q6H PRN PRN Reason: PAIN Alvimopan (Entereg Capsule (Restricted) -) 12 mg PO BID [facility] Last Admin: 11/02/18 10:38 Dose: 12 mg Amlodipine Besylate (Norvasc -) 5 mg PO DAILY [facility] Last Admin: 11/02/18 10:38 Dose: 5 mg Enoxaparin Sodium (Lovenox -) 30 mg SQ DAILY [facility] Fentanyl (Sublimaze Injection -) 25 mcg IVPUSH [id number] PRN PRN Reason: PAIN-PACU ORDER X 4 DOSES ONLY Piperacillin Sod/Tazobactam (Sod 3.375 gm/ Dextrose) 50 mls @ 100 mls/hr IVPB Q8H-IV [facility]; Protocol Last Admin: 11/02/18 10:38 Dose: 100 mls/hr Lactated Ringer's (Lactated Ringers Solution) 1,000 mls @ 125 mls/hr IV ASDIR [facility] Last Admin: 11/01/18 10:26 Dose: 125 mls/hr Ketorolac Tromethamine (Toradol Injection -) 15 mg IVPUSH Q6H PRN PRN Reason: PAIN LEVEL 1-5 Stop: 11/06/18 12:29 Ondansetron HCl (Zofran Injection) 4 mg IVPUSH Q6H PRN PRN Reason: NAUSEA AND/OR VOMITING Last Admin: 10/31/18 17:25 Dose: 4 mg Promethazine HCl (Phenergan Injection -) 6.25 mg IVPB ONCE PRN PRN Reason: NAUSEA - Objective Vital Signs: Vital Signs Temperature 98.8 F 11/02/18 10:00 Pulse Rate 54 L 11/02/18 10:00 Respiratory Rate 16 11/02/18 10:00 Blood Pressure 115/48 L 11/02/18 10:00 O2 Sat by Pulse Oximetry (%) 96 11/01/18 21:00 Constitutional: Yes: Well Nourished Cardiovascular: Yes: WNL Respiratory: Yes: WNL Gastrointestinal: Yes: WNL Labs: CBC, BMP 11/01/18 06:42 11/01/18 06:42 Assessment/Plan patient states adequate pain control with minimal opioid requirement, numerical control machine operator stopped, no apparent adverse anesthetic events. dept of anesthesia will sign off care at this time.
--- NOTE | 2018-11-02 14:15 | PN ---
Teaching Attending Note Name of Resident: Bindu Alexis ATTENDING PHYSICIAN STATEMENT I saw and evaluated the patient. I reviewed the resident's note and discussed the case with the resident. I agree with the resident's findings and plan as documented. SUBJECTIVE: Mild abdominal discomfort. No flatus/BMs. No CP/palpitations/ lightheadedness/cough/sputum. No nausea/vomiting. OBJECTIVE: T 100.2, Hemodynamically Stable. Last Vital Signs Temp Pulse Resp BP Pulse Ox 98.8 F 54 L 16 115/48 L 96 11/02/18 10:00 11/02/18 10:00 11/02/18 10:00 11/02/18 10:00 11/02/18 09:00 Heart - S1, S2, HR 54 Lungs - decreased air entry at bases Abdomen - Midline laparotomy site dressed. Soft. Extremities - No edema, no calf tenderness Current Medications Generic Name Dose Route Start Last Admin Trade Name Freq PRN Reason Stop Dose Admin Acetaminophen 1,000 mg 11/01/18 12:31 Ofirmev Injection - IVPB Q6H PRN PAIN Alvimopan 12 mg 10/31/18 11:00 11/02/18 10:38 Entereg Capsule (Restricted) - PO 12 mg BID [facility] Administration Amlodipine Besylate 5 mg 11/01/18 10:00 11/02/18 10:38 Norvasc - PO 5 mg DAILY [facility] Administration Enoxaparin Sodium 30 mg 11/01/18 10:00 Lovenox - SQ DAILY [facility] Fentanyl 25 mcg 10/31/18 12:54 Sublimaze Injection - IVPUSH [id number] PRN PAIN-PACU ORDER X 4 DOSES ONLY Piperacillin Sod/Tazobactam 50 mls @ 100 mls/hr 10/31/18 22:30 11/02/18 10:38 Sod 3.375 gm/ Dextrose IVPB 100 mls/hr Q8H-IV [facility] Administration Protocol Lactated Ringer's 1,000 mls @ 125 mls/hr 11/01/18 08:29 11/01/18 10:26 Lactated Ringers Solution IV 125 mls/hr ASDIR [facility] Administration Ketorolac Tromethamine 15 mg 11/01/18 12:30 Toradol Injection - IVPUSH 11/06/18 12:29 Q6H PRN PAIN LEVEL 1-5 Ondansetron HCl 4 mg 10/31/18 12:54 10/31/18 17:25 Zofran Injection IVPUSH 4 mg Q6H PRN Administration NAUSEA AND/OR VOMITING Promethazine HCl 6.25 mg 10/31/18 18:52 Phenergan Injection - IVPB ONCE PRN NAUSEA ASSESSMENT AND PLAN: 78 year old female with history of HTN, admitted s/p elective Colovesicular Fistula repair by Surgery. Medicine consulted for medical management of HTN. 1. HTN - normally on Atenolol, Chlorthalidone, Norvasc BB held due to Bradycardia Chlorthalidone held bailee-operatively - can be resumed on discharged. Continue Norvasc if BP allows. 2. Colovesicular Fistula s/p Repair Currently POD 2 s/p sigmoidectomy and colovesicular resection Low grade fever 100.2 - asymptomatic - no cough/sputum - recommend Incentive Spirometry Diet advancement as per Surgery Abx as per Surgery/ID Pain management as per Surgery DVT Px with Lovenox. 3. ADAN - awaiting today's labs. Continue IV fluids pending labs If any worsening of renal function, primary team to consider Renal imaging +/- nephrology consult. 4. Acute Blood Loss Anemia sec to Surgery Awaiting today's labs Recommend Iron supplementation. 5. Hypomagnesemia - repleted 11/02/18, today's labs not drawn yet.
--- NOTE | 2018-11-02 14:47 | PN ---
Progress Note (short form) - Note Progress Note: POD#2 Pt states that she has been oob and ambulated to the nursing station yesterday and today. No nausea or emesis. No flatus or bowel movements. Vital Signs Period Temp Pulse Resp BP Sys/Riley Pulse Ox Last 24 Hr 97.8 F-100.2 F 46-87 16-20 101-115/34-48 96-96 UOP 2500 clear/yellow urine GEN: A&0x3, NAD CV: RRR Lungs: CTA b/l anteriorly ABD: soft, non-distended, non-tender. Inc c/d/i with de. LE: no calf tenderness or swelling noted b/l CBC, BMP // 06:42 // 06:42 A/P: 78 yo female s/p sigmoid colon resection for colovesical fistula Spoke with Dr. Brown and patient may continue ice chips IV hydration, good uop-sebastian to remain in place. BUN/CRET mild elevation. Will continue to monitor daily(ordered for STAT today). Adjust IV abx as needed based on renal function. Lovenox SQ Tylenol for pain medication D/w Dr. Brown
[2018-11-02 15:29] LABS: HEMATOCRIT 23.7 % (32.4-45.2); HEMOGLOBIN 7.6 GM/dL (10.7-15.3); MCH 28.9 pg (25.7-33.7); MEAN CELL VOLUME 90.3 fl (80-96); MEAN PLT VOLUME 7.9 fl (7.5-11.1); PLATELET COUNT 200 K/MM3 (134-434); RBC 2.63 M/mm3 (3.60-5.2); RDW 14.7 % (11.6-15.6); WHITE BLOOD COUNT 11.9 K/mm3 (4.0-10.0)
[2018-11-02 15:59] LABS: CALCIUM 8.8 mg/dL (8.5-10.1); CREATININE 1.5 mg/dL (0.55-1.3); POTASSIUM 3.2 mmol/L (3.5-5.1)
[2018-11-02] MEDS: KCL 10 MEQ IVPB 10 MEQ/100 ML INFUS.BAG IVPB SCH ×3 (16:41→23:56)
[2018-11-02] MEDS: ENOXAPARIN NA (PORCINE) 30 MG/0.3 ML DISP.SYRIN SQ SCH (16:41)
[2018-11-02] MEDS ORDERED: KCL 10 MEQ IVPB 10 MEQ/100 ML INFUS.BAG IVPB SCH (16:45)
[2018-11-02] MEDS ORDERED: PT OWN MED DRAWER 7, Y5N ONE (22:09)
[2018-11-02] MEDS: LACTATED RINGERS SOLUTION 1,000 ML IV SCH (22:16)
[2018-11-03] MEDS: PIPERACILLIN/TAZOB 3.375 GM 3.375 GM in DEXTROSE 5%-WATER - 50 ML IVPB SCH ×3 (01:58→17:28)
[2018-11-03 07:27] LABS: BASO % 0.8 % (0-2.0); EOS % 1.3 % (0-4.5); HEMATOCRIT 22.9 % (32.4-45.2); HEMOGLOBIN 7.6 GM/dL (10.7-15.3); LYMPH % 17.3 % (8-40); MCH 29.8 pg (25.7-33.7); MCHC 33.3 g/dl (32.0-36.0); MEAN CELL VOLUME 89.7 fl (80-96); MEAN PLT VOLUME 7.9 fl (7.5-11.1); MONO % 8.3 % (3.8-10.2); NEUT % 72.3 % (42.8-82.8); PLATELET COUNT 192 K/MM3 (134-434); RBC 2.55 M/mm3 (3.60-5.2); RDW 14.6 % (11.6-15.6); WHITE BLOOD COUNT 9.5 K/mm3 (4.0-10.0)
--- NOTE | 2018-11-03 07:53 | PN ---
Progress Note (short form) - Note Progress Note: POD #3 s/p sigmoid colon resection with colovesicula fistula take-down No acute events over past 24hrs per RN notes. Sitting in chair at bedside, resting comfortably without complaint. Continues to ambulate hallways unassisted. States she is passing flatus. Had 1 episode of diarrhea (non-bloody) Denies n/v/f/c, CP or SOB. Last Vital Signs Temp Pulse Resp BP Pulse Ox 98.5 F 57 L 20 143/59 L 97 11/03/ 06:00 11/03/18 06:00 11/03/18 06:00 11/03/18 06:00 11/02/18 21:00 H/H TREND 10/31/18 11/01/18 11/02/18 11/03/18 19:30 06:42 15:24 06:40 Hgb 8.7 7.9 7.6 7.6 Hct 27.7 24.0 23.7 22.9 PE General: No acute distress. Pulm: CTA bilat Cor: RRR Abd: Soft. Dressing c/d/i. No evidence of infection. Bowel sounds present in all quadrants : sebastian to gravity (clear. > 30 mL/hr) LE: Soft, non-tender bilat. SCD's bilat. Problem List - Problems (1) Colovesical fistula Assessment/Plan: POD #3 s/p Colovesical fistula takedown, sigmoid resection w/ handsewn anastamosis. Anemic as evidenced by her drop in H/H over the past three days. She is asymptomatic as indicated by normotensive BP and HR of 57, and room air SPO2 97%. Goals for today: 1. Cont OOB and ambulate 2. Entereg dc'd on rounds 3. I/Os 4. GI PPX 6. H/H - (currently 7.6/22.9) --> repeat CBC at 1300 today, if continues to drop , will order 2 pRBC to be transfused. 7. DVT PPX via SQ Lovenox & SCDs 8. Begin clear liquid diet 9. Attending aware that [facility] don't cover weekends. He will see patient tomorrow and possibly dc if tolerates reg diet and h/h stable Above plan discussed with Dr. Brown and agrees Code(s): N32.1 - VESICOINTESTINAL FISTULA Problem List - Problems (1) Colovesical fistula Code(s): N32.1 - VESICOINTESTINAL FISTULA
[2018-11-03 08:23] LABS: CALCIUM 8.8 mg/dL (8.5-10.1); CREATININE 1.4 mg/dL (0.55-1.3); POTASSIUM 3.5 mmol/L (3.5-5.1)
--- NOTE | 2018-11-03 08:43 | PN ---
Progress Note, Physician History of Present Illness: patient stable no new issues wbc has normalized - Current Medication List Current Medications: Active Medications Acetaminophen (Ofirmev Injection -) 1,000 mg IVPB Q6H PRN PRN Reason: PAIN Amlodipine Besylate (Norvasc -) 5 mg PO DAILY [facility] Last Admin: 11/02/18 10:38 Dose: 5 mg Enoxaparin Sodium (Lovenox -) 30 mg SQ DAILY [facility] Last Admin: 11/02/18 16:41 Dose: 30 mg Piperacillin Sod/Tazobactam (Sod 3.375 gm/ Dextrose) 50 mls @ 100 mls/hr IVPB Q8H-IV [facility]; Protocol Last Admin: 11/03/18 01:58 Dose: 100 mls/hr Lactated Ringer's (Lactated Ringers Solution) 1,000 mls @ 125 mls/hr IV ASDIR [facility] Last Admin: 11/02/18 22:16 Dose: Not Given Ondansetron HCl (Zofran Injection) 4 mg IVPUSH Q6H PRN PRN Reason: NAUSEA AND/OR VOMITING Last Admin: 10/31/18 17:25 Dose: 4 mg Promethazine HCl (Phenergan Injection -) 6.25 mg IVPB ONCE PRN PRN Reason: NAUSEA - Objective Vital Signs: Vital Signs Temperature 98.5 F 11/03/18 06:00 Pulse Rate 57 L 11/03/18 06:00 Respiratory Rate 20 11/03/18 06:00 Blood Pressure 143/59 L 11/03/18 06:00 O2 Sat by Pulse Oximetry (%) 97 11/02/18 21:00 Constitutional: Yes: No Distress, Calm Cardiovascular: Yes: Regular Rate and Rhythm Respiratory: Yes: Regular, CTA Bilaterally Gastrointestinal: Yes: Hypoactive Bowel Sounds, Other (gi function awaited) Musculoskeletal: Yes: WNL Extremities: Yes: WNL Wound/Incision: Yes: Clean/Dry Labs: CBC, BMP 11/03/18 06:40 11/03/18 06:41 Assessment/Plan 78 year old female with history of HTN, admitted s/p elective Colovesicular Fistula repair by Surgery. 1. HTN 2. Colovesicular Fistula s/p Repair abd pain leukocytosis plan hydration abx wound care rest as per the team await for gi function if patient remains normal will deescalte
[2018-11-03] MEDS ORDERED: DEXTROSE 5%-WATER - 50 ML IVPB ONE ×2 (08:49→16:41)
[2018-11-03] MEDS ORDERED: PIPERACILLIN/TAZOBACTAM 3.375 GM VIAL IVPB ONE ×2 (08:49→16:41)
[2018-11-03] MEDS: ENOXAPARIN NA (PORCINE) 30 MG/0.3 ML DISP.SYRIN SQ SCH (10:18)
[2018-11-03] MEDS: amLODIPine BESYLATE 5 MG TABLET (FP) PO SCH (10:18)
[2018-11-03] MEDS: LACTATED RINGERS SOLUTION 1,000 ML IV SCH (10:19)
--- NOTE | 2018-11-03 12:38 | PN ---
Physical Exam: SUBJECTIVE: Patient seen and examined at bedside. No acute events overnight. Pt states she has been having multiple loose bowel movements. Admits to mild abd soreness. Denies cp, sob, burleson/d, f/c. OBJECTIVE: Vital Signs Temperature 98.4 F 11/03/18 10:00 Pulse Rate 55 L 11/03/18 10:00 Respiratory Rate 18 11/03/18 10:00 Blood Pressure 132/57 L 11/03/18 10:00 O2 Sat by Pulse Oximetry (%) 97 11/02/18 21:00 GENERAL: Awake and alert. Responds to commands. Pleasant and cooperative. HEENT: AT/NC. Dry mucus membranes. LUNGS: CTA B/L. No wheezes or crackles noted. HEART: RRR. Normal S1, S2. No murmurs noted. ABDOMEN: Soft, ND. Abd dressing c/d/i. +tenderness to mild palpation. LOWER EXTREMITIES: 2+ pulses, warm, well-perfused. No calf tenderness. No peripheral edema. NEUROLOGICAL: Alert, follows commands. CBC, BMP 11/03/18 06:40 11/03/18 06:41 Active Medications Acetaminophen (Ofirmev Injection -) 1,000 mg IVPB Q6H PRN PRN Reason: PAIN Amlodipine Besylate (Norvasc -) 5 mg PO DAILY [facility] Last Admin: 11/03/18 10:18 Dose: 5 mg Enoxaparin Sodium (Lovenox -) 30 mg SQ DAILY [facility] Last Admin: 11/03/18 10:18 Dose: 30 mg Piperacillin Sod/Tazobactam (Sod 3.375 gm/ Dextrose) 50 mls @ 100 mls/hr IVPB Q8H-IV [facility]; Protocol Last Admin: 11/03/18 13:37 Dose: 100 mls/hr Lactated Ringer's (Lactated Ringers Solution) 1,000 mls @ 125 mls/hr IV ASDIR [facility] Last Admin: 11/03/18 10:19 Dose: Not Given Ondansetron HCl (Zofran Injection) 4 mg IVPUSH Q6H PRN PRN Reason: NAUSEA AND/OR VOMITING Last Admin: 10/31/18 17:25 Dose: 4 mg Promethazine HCl (Phenergan Injection -) 6.25 mg IVPB ONCE PRN PRN Reason: NAUSEA IMAGING: * Abd xray (11/01/18): Nonspecific bowel pattern w/ midline de and LLQ clips. Radioopaque foreign body other than de and clips is not seen. 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 we were consulted to manage HTN. #HTN Cont home meds: Amlodipine 5 mg QD, BP permitting -cont to monitor BP -hold Chlorthalidone -BB hold due to bradycardia #ADAN; improved. -Cr today 1.4, cont to trend BMP -IVf #S/p colovesicular repair, POD 3 -NPO/IVf, monitor return of bowel fxn -Pain control per surg -Per ID, cont Zosyn 3.375 gm Q8H -IS/PT eval/OOB/ambulate -Zofran for nausea -Gold in place, daily weights, monitor urine output #Bradycardia; hold BB. #FEN LR @ 125 and boluses as needed to maintain BP E: monitor lytes N: NPO till pass flatus except meds with sip of water #DVT Ppx -Lovenox 30 QD Dispo -Cont to monitor on med surg -full code -next of kin is her son Dilip Ortega [phone] Visit type - Emergency Visit Emergency Visit: Yes ED Registration Date: 10/31/18 Care time: The patient presented to the Emergency Department on the above date and was hospitalized for further evaluation of their emergent condition. - New Patient This patient is new to me today: No - Critical Care Critical Care patient: No
--- NOTE | 2018-11-03 16:23 | PN ---
Teaching Attending Note Name of Resident: Bindu Alexis ATTENDING PHYSICIAN STATEMENT I saw and evaluated the patient. I reviewed the resident's note and discussed the case with the resident. I agree with the resident's findings and plan as documented. SUBJECTIVE: Abdominal discomfort improving. No flatus/BMs. No CP/palpitations/ lightheadedness/cough/sputum. No nausea/vomiting. OBJECTIVE: Afebrile, Hemodynamically Stable. Last Vital Signs Temp Pulse Resp BP Pulse Ox 98.4 F 55 L 18 132/57 L 97 11/03/18 10:00 11/03/18 10:00 11/03/18 10:11/03/18 10:11/02/18 21:00 Heart - S1, S2, HR 55 Lungs - decreased air entry at bases Abdomen - Midline laparotomy site dressed. Soft. Extremities - No edema, no calf tenderness Laboratory Results - last 24 hr 10/31/18 11/03/18 11/03/18 09:54 06:40 06:41 WBC 9.5 RBC 2.55 L Hgb 7.6 L Hct 22.9 L MCV 89.7 MCH 29.8 MCHC 33.3 RDW 14.6 Plt Count 192 MPV 7.9 Absolute Neuts (auto) 6.9 Neutrophils % 72.3 D Lymphocytes % 17.3 D Monocytes % 8.3 Eosinophils % 1.3 D Basophils % 0.8 D Nucleated RBC % 0 Sodium 140 Potassium 3.5 Chloride 103 Carbon Dioxide 31 Anion Gap 7 L BUN 15 Creatinine 1.4 H Est GFR (CKD-EPI)AfAm 41.03 Est GFR (CKD-EPI)NonAf 35.40 Random Glucose 84 Calcium 8.8 Blood Type A POSITIVE Antibody Screen Negative Crossmatch See Detail Current Medications Generic Name Dose Route Start Last Admin Trade Name Freq PRN Reason Stop Dose Admin Acetaminophen 1,000 mg 11/01/18 12:31 Ofirmev Injection - IVPB Q6H PRN PAIN Amlodipine Besylate 5 mg 11/01/18 10:11/03/18 10:18 Norvasc - PO 5 mg DAILY CRAIG Administration Enoxaparin Sodium 30 mg 11/02/18 15:19 11/03/18 10:18 Lovenox - SQ 30 mg DAILY CRAIG Administration Piperacillin Sod/Tazobactam 50 mls @ 100 mls/hr 10/31/18 22:30 11/03/18 13:37 Sod 3.375 gm/ Dextrose IVPB 100 mls/hr Q8H-IV CRAIG Administration Protocol Lactated Ringer's 1,000 mls @ 125 mls/hr 11/01/18 08:29 11/03/18 10:19 Lactated Ringers Solution IV Not Given ASDIR CRAIG Ondansetron HCl 4 mg 10/31/18 12:54 10/31/18 17:25 Zofran Injection IVPUSH 4 mg Q6H PRN Administration NAUSEA AND/OR VOMITING Promethazine HCl 6.25 mg 10/31/18 18:52 Phenergan Injection - IVPB ONCE PRN NAUSEA ASSESSMENT AND PLAN: 78 year old female with history of HTN, admitted s/p elective Colovesicular Fistula repair by Surgery. Medicine consulted for medical management of HTN. 1. HTN - normally on Atenolol, Chlorthalidone, Norvasc BB held due to Bradycardia Chlorthalidone held bailee-operatively - can be resumed on discharged. Continue Norvasc if BP allows. 2. Colovesicular Fistula s/p Repair Currently POD 3 s/p sigmoidectomy and colovesicular resection Afebrile Diet advancement as per Surgery Abx as per Surgery/ID Pain management as per Surgery DVT Px with Lovenox. 3. ADAN - resolving. Creat appears to have plateaued at 1.4 (baseline unknown) If any worsening of renal function, primary team to consider Renal imaging +/- nephrology consult. 4. Acute Blood Loss Anemia sec to Surgery H/H Stable Recommend Iron supplementation. 5. Hypomagnesemia - repleted 11/02/18 No acute medical issues at this time. Medicine service will sign-off. Please re- call if any further issues arise.
[2018-11-03 16:55] LABS: HEMATOCRIT 29.1 % (32.4-45.2); HEMOGLOBIN 9.7 GM/dL (10.7-15.3); MCH 29.7 pg (25.7-33.7); MCHC 33.2 g/dl (32.0-36.0); MEAN CELL VOLUME 89.6 fl (80-96); MEAN PLT VOLUME 7.7 fl (7.5-11.1); RBC 3.25 M/mm3 (3.60-5.2); RDW 14.4 % (11.6-15.6); WHITE BLOOD COUNT 9.7 K/mm3 (4.0-10.0)
[2018-11-03 21:52] LABS: PLATELET COUNT 201 K/MM3 (134-434)
[2018-11-04] MEDS ORDERED: PIPERACILLIN/TAZOBACTAM 3.375 GM VIAL IVPB ONE ×3 (01:14→17:52)
[2018-11-04] MEDS ORDERED: DEXTROSE 5%-WATER - 50 ML IVPB ONE ×3 (01:14→17:52)
[2018-11-04] MEDS: PIPERACILLIN/TAZOB 3.375 GM 3.375 GM in DEXTROSE 5%-WATER - 50 ML IVPB SCH ×3 (01:18→18:04)
[2018-11-04 07:52] LABS: HEMATOCRIT 28.5 % (32.4-45.2); HEMOGLOBIN 9.8 GM/dL (10.7-15.3); MCH 30.2 pg (25.7-33.7); MCHC 34.2 g/dl (32.0-36.0); MEAN CELL VOLUME 88.4 fl (80-96); MEAN PLT VOLUME 7.6 fl (7.5-11.1); RBC 3.23 M/mm3 (3.60-5.2); RDW 14.5 % (11.6-15.6); WHITE BLOOD COUNT 7.5 K/mm3 (4.0-10.0)
[2018-11-04 08:07] LABS: BLOOD UREA NITROGEN 9.3 mg/dL (7-18); CALCIUM 8.8 mg/dL (8.5-10.1); CREATININE 1.2 mg/dL (0.55-1.3); POTASSIUM 3.3 mmol/L (3.5-5.1)
[2018-11-04] MEDS: ENOXAPARIN NA (PORCINE) 30 MG/0.3 ML DISP.SYRIN SQ SCH (10:17)
[2018-11-04] MEDS: LACTATED RINGERS SOLUTION 1,000 ML IV SCH (10:18)
[2018-11-04] MEDS: amLODIPine BESYLATE 5 MG TABLET (FP) PO SCH (10:18)
[2018-11-04 11:19] LABS: PLATELET COUNT 235 K/MM3 (134-434)
--- NOTE | 2018-11-04 18:48 | PN ---
Progress Note, Physician History of Present Illness: Pt seen and examined, events noted, labs/imaging results reviewed. Pt states she feels well and has no abd pain. Started regular diet just recently. Afebrile , without complaints. - Current Medication List Current Medications: Active Medications Acetaminophen (Ofirmev Injection -) 1,000 mg IVPB Q6H PRN PRN Reason: PAIN Amlodipine Besylate (Norvasc -) 5 mg PO DAILY [facility] Last Admin: 11/04/18 10:18 Dose: 5 mg Enoxaparin Sodium (Lovenox -) 30 mg SQ DAILY [facility] Last Admin: 11/04/18 10:17 Dose: 30 mg Piperacillin Sod/Tazobactam (Sod 3.375 gm/ Dextrose) 50 mls @ 100 mls/hr IVPB Q8H-IV CRAIG; Protocol Last Admin: 11/04/18 18:04 Dose: 100 mls/hr Lactated Ringer's (Lactated Ringers Solution) 1,000 mls @ 125 mls/hr IV ASDIR CRAIG Last Admin: 11/04/18 10:18 Dose: 125 mls/hr Ondansetron HCl (Zofran Injection) 4 mg IVPUSH Q6H PRN PRN Reason: NAUSEA AND/OR VOMITING Last Admin: 10/31/18 17:25 Dose: 4 mg Promethazine HCl (Phenergan Injection -) 6.25 mg IVPB ONCE PRN PRN Reason: NAUSEA - Objective Vital Signs: Vital Signs Temperature 98.2 F 11/04/18 18:14 Pulse Rate 67 11/04/18 18:14 Respiratory Rate 20 11/04/18 18:14 Blood Pressure 143/72 11/04/18 18:14 O2 Sat by Pulse Oximetry (%) 97 11/02/18 21:00 Constitutional: Yes: No Distress, Calm Cardiovascular: Yes: Regular Rate and Rhythm Respiratory: Yes: Regular Gastrointestinal: Yes: Soft Genitourinary: Yes: WNL Extremities: Yes: WNL Integumentary: Yes: WNL Wound/Incision: Yes: Redfox Intact Neurological: Yes: Alert, Oriented Labs: CBC, BMP 11/04/18 07:15 11/04/18 07:15 - ....Imaging X-ray: Report Reviewed Problem List - Problems (1) 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
[2018-11-05] MEDS ORDERED: PIPERACILLIN/TAZOBACTAM 3.375 GM VIAL IVPB ONE ×2 (01:41→10:00)
[2018-11-05] MEDS ORDERED: DEXTROSE 5%-WATER - 50 ML IVPB ONE ×2 (01:41→10:00)
[2018-11-05] MEDS: PIPERACILLIN/TAZOB 3.375 GM 3.375 GM in DEXTROSE 5%-WATER - 50 ML IVPB SCH ×2 (02:07→10:03)
[2018-11-05] MEDS: ENOXAPARIN NA (PORCINE) 30 MG/0.3 ML DISP.SYRIN SQ SCH (10:02)
[2018-11-05] MEDS: amLODIPine BESYLATE 5 MG TABLET (FP) PO SCH (10:02)
[2018-11-05 11:26] VITALS: BP 151/76; PULSE 71; TEMP 98.1
--- NOTE | 2018-11-07 10:13 | PATH ---
Surgical Pathology Report Patient Name: ANDRÉS ALLEN Med. Rec. #: [id number] /Age/Gender: 1940 (Age: 78) / F Account: [id number] Location: [facility] MED/SURG Taken: 10/31/2018 Received: 11/01/2018 Reported: 11/07/2018 Physicians: Daria Brown Specimen(s) Received SIGMOID COLON Clinical History Colon vesicle fistula Final Diagnosis SIGMOID COLON, RESECTION: SEGMENT OF COLON WITH DIVERTICULOSIS, SEVERE ACUTE AND CHRONIC DIVERTICULITIS, AND ASSOCIATED ABSCESS FORMATION, HEMORRHAGE, FIBROSIS IN ADJACENT SOFT TISSUE, AND DENSE TUBO-OVARIAN ADHESIONS. OVARY WITH SMALL FIBROMA. SURGICAL MARGINS ARE VIABLE. Comment: Immunohistochemical stains performed at [employer], [place] ([id number]) and interpreted at [facility] show the fibroma is positive for SMA, weakly for inhibin and WT-1 (focal), while negative for desmin. Electronically Signed By Nazia Gonzalez M.D. Estela Villarreal M.D. Gross Description Received in formalin labeled "sigmoid," is an 11 cm in length portion of colon with one open and one stapled mucosal margin. The specimen displays moderate attached pericolonic adipose tissue. The serosa displays a focus of exudate, inflammation and adhesions. Sectioning reveals a possible diverticulum in the area of the exudate. Adjacent to the focus of exudate and inflammation, there is a 1.3 cm in length fimbriated fallopian tube as well as a 1.8 x 0.8 x 0.6 cm ovary adhesed to the outer surface of the bowel. Sectioning of the remaining bowel displays multiple diverticula. The bowel mucosa is vidal with normal folds. No mucosal masses are identified. [employer] sections are submitted in 14 cassettes as follows: 1-open mucosal margin; 2-stapled mucosal margin; 9-8-mnerqtil from focus of inflammation and exudate; 10-fallopian tube fimbria; 11-12-cross sections of fallopian tube adhesed to bowel serosa; 13-14-ovary adhesed to bowel serosa. /11/01/2018 saudi/11/01/2018
== END 2018-11-05 15:22 | disposition home or self-care (01) | DRG 330 ==
LOC: JSAMEDAYSX 09:42 → J8W 18:16
PROVIDERS: ADMIT Surgery Vascular Surgery; ATTEND Surgery Vascular Surgery
PROC: 0UB10ZZ Excision of Left Ovary, Open Approach (ICD-10-PCS; 2018-10-31)
PROC: 0TJ Urinary System, Inspection (ICD-10-PCS; 2018-10-31)
PROC: 0DTN0ZZ Resection of Sigmoid Colon, Open Approach (ICD-10-PCS; principal; 2018-10-31 11:30)
DX: K57.20 Diverticulitis of large intestine with perforation and abscess without bleeding (principal); N32.1 Vesicointestinal fistula; N17.9 Acute kidney failure, unspecified; D62 Acute posthemorrhagic anemia; I10 Essential (primary) hypertension; R00.1 Bradycardia, unspecified; E83.42 Hypomagnesemia; D72.829 Elevated white blood cell count, unspecified
CPT/HCPCS: 36415; 36430; 36511; 74018-TC-FY; 80048; 80053; 83735; 84100; 85025; 85027; 86850; 86900; 86901; 86922; 88307-TC; 94760; 97116-GP; 97161-GP; J0131; P9038; P9058

== ENCOUNTER 2019-04-09 22:06 | Emergency (ER) | payer BC, OTHER ==
[2019-04-09 22:14] VITALS: BP 163/59; PULSE 48; TEMP 97.5; BMI 27.2
--- NOTE | 2019-04-10 00:16 | PDOC ---
Documentation entered by Darleen Lu SCRIBE, acting as scribe for Fernanda Crawford MD. Fernanda Crawford MD: This documentation has been prepared by the Aly flores Brenda, SCRIBE, under my direction and personally reviewed by me in its entirety. I confirm that the documentation accurately reflects all work, treatment, procedures, and medical decision making performed by me. History of Present Illness - General Chief Complaint: Blood Pressure Problem Stated Complaint: HIGH BLOOD PRESSURE Time Seen by Provider: 04/09/19 22:09 History Source: Patient Exam Limitations: No Limitations - History of Present Illness Initial Comments: This 78-year-old woman with a history of HTN/HLD/colovesicular fistula ( repaired 11/15) presents with few day history of dizziness (now resolved) and elevated blood pressure readings (on home BP monitor). Patient is taking her antihypertensive medications as prescribed. A few days ago, the patient engaged in strenuous activity involving scrubbing the floors in her home with chemical solvent prior to staining them. After this, she had episodes of intermittent vertigo, especially severe when walking around her home. She had no other acute neurologic symptoms. Because of the dizziness, the patient checked her blood pressure readings on her home monitor (patient states that she rarely uses the home monitor). She became alarmed because blood pressure readings were intermittently elevated (as high as systolic of 198 mmHg). She denies shortness of breath, chest pain, palpitations, difficulty in word recall , facial or extremity weakness or gait abnormalities. Non-smoker No daily alcohol/other recreational drug use Past History - Past Medical History Allergies/Adverse Reactions: Allergies Allergy/AdvReac Type Severity Reaction Status Date / Time No Known Drug Allergies Allergy Verified 04/09/19 22:09 ciprofloxacin [From Cipro] AdvReac Intermediate Verified 04/09/19 22:09 Home Medications: Ambulatory Orders Amlodipine Besylate [Norvasc -] 5 mg PO HS 10/31/15 Atenolol/Chlorthalidone [Atenolol-Chlorthalidone 50-25] 1 each PO HS 10/31/15 Atorvastatin Ca [Lipitor] 10 mg PO HS 11/01/18 Anemia: No Asthma: No Cancer: No Cardiac Disorders: No CVA: No COPD: No CHF: No Dementia: No Diabetes: No GI Disorders: No Disorders: No HTN: Yes Hypercholesterolemia: Yes (DIET CONTROLLED) Liver Disease: No Seizures: No Thyroid Disease: No - Surgical History Abdominal Surgery: No Appendectomy: No Cardiac Surgery: No Cholecystectomy: No Lung Surgery: No Neurologic Surgery: No Orthopedic Surgery: No - Psycho Social/Smoking Cessation Hx Smoking Status: Yes Smoking History: Never smoked Have you smoked in the past 12 months: No Number of Cigarettes Smoked Daily: 5 If you are a former smoker, 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 you quit?: A TEENAGER Information on smoking cessation initiated: No Hx Alcohol Use: No Drug/Substance Use Hx: No Substance Use Type: Alcohol Hx Substance Use Treatment: No Review of Systems - Review of Systems Able to Perform ROS?: Yes Comments:: 12 point review of systems is negative except for what is noted in the history of present illness *Physical Exam - Vital Signs Last Vital Signs Temp Pulse Resp BP Pulse Ox 97.5 F L 48 L 16 163/59 L 98 04/09/19 22:12 04/09/19 22:12 04/09/19 22:12 04/09/19 22:12 04/09/19 22:12 - Physical Exam Comments: GENERAL: Adult female, alert and oriented x3, no acute distress BP: 163/59 HR: 48/min HEAD: Normal with no signs of trauma. EYES: PERRLA, EOMI, sclera anicteric, conjunctiva clear. ENT: Ears normal, nares patent, oropharynx clear without exudates. Moist mucous membranes. NECK: Normal range of motion, supple without lymphadenopathy, JVD, or masses. No bruits heard LUNGS: Breath sounds equal, clear to auscultation bilaterally. No wheezes, and no crackles. HEART:Regular rate and rhythm, normal S1 and S2 without murmur, rub or gallop. ABDOMEN:.normal bowel sounds No guarding,tenderness or rebound.No masses No distention. EXTREMITIES: Normal range of motion, no edema. No clubbing or cyanosis. No erythema, or tenderness. NEUROLOGICAL: Cranial nerves II through XII grossly intact. Normal speech. No focal neurological deficits. MUSCULOSKELETAL: Back non-tender to palpation, no CVA tenderness SKIN: Warm, Dry, normal turgor, no rashes or lesions noted. 12 lead EKG performed: Sinus bradycardia 44/minute ; waveforms, intervals and axis are all normal. No evidence of acute ST or T wave abnormalities, no evidence of acute cardiac arrhythmia Medical Decision Making - Medical Decision Making This 78-year-old woman with a history of hypertension and a few day history of vertigo (now resolved without treatment) presents with concerns regarding elevated blood pressure readings taken with home monitor. She has no other complaints today. Exam notable for blood pressure 163/59 without physical abnormalities on exam. Twelve-lead electrocardiogram reveals marked bradycardia but no waveform or interval abnormalities are present. Although no previous EKG is available for review, she has been bradycardic in the past when admitted to [facility] (for example , 51/min in October,) Recommendations regarding at home blood pressure monitoring discussed with the patient. Physiologic changes in blood pressure are normal throughout the day. She should continue using her medications as prescribed and follow-up with her PMD, Dr. Kennedy, within the next few days. She should return to the emergency room if she has recurrence of her vertigo or if she develops any new symptoms such as chest pain, shortness of breath, palpitations, extreme weakness Discharge - Discharge Information Problems reviewed: Yes Clinical Impression/Diagnosis: Hypertension Qualifiers: Hypertension type: unspecified Qualified Code(s): I10 - Essential (primary) hypertension Condition: Stable Disposition: HOME - Follow up/Referral Referrals: Iggy Kennedy MD [Primary Care Provider] - - Patient Discharge Instructions Patient Printed Discharge Instructions: Essential Hypertension Additional Instructions: Avoid strenuous activity over the next several days Eat regular meals/drink plenty of fluids and get plenty of sleep Continue high blood pressure medication as prescribed Return to ER if you have persistent dizziness or experience shortness of breath/ chest pain Follow-up with Dr. Kennedy within the next 2 to 3 days - Post Discharge Activity
--- NOTE | 2019-04-10 11:20 | EKG ---
Test Reason : Blood Pressure : / mmHG Vent. Rate : 044 BPM Atrial Rate : 044 BPM P-R Int : 156 ms QRS Dur : 086 ms QT Int : 496 ms P-R-T Axes : 053 -44 024 degrees QTc Int : 424 ms MARKED SINUS BRADYCARDIA LEFT AXIS DEVIATION MODERATE VOLTAGE CRITERIA FOR LVH, MAY BE NORMAL VARIANT ABNORMAL ECG NO PREVIOUS ECGS AVAILABLE Confirmed by MD Skip, Kolton ([id number]) on 04/10/2019 11:20:04 AM Referred By: TELLY IZAGUIRRE Confirmed By:Kolton Valdivia MD
== END 2019-04-09 23:59 | disposition home or self-care (01) ==
LOC: FER 22:06
DX: I10 Essential (primary) hypertension (principal); R42 Dizziness and giddiness; Z88.1 Allergy status to other antibiotic agents; Z87.891 Personal history of nicotine dependence; E78.00 Pure hypercholesterolemia, unspecified
CPT/HCPCS: 93005; 99281-25

== ENCOUNTER 2025-03-11 11:24 | Emergency (ER) | payer BC ==
[2025-03-11 11:39] VITALS: BP 142/71; PULSE 90; RESP 18; TEMP 98.4; BMI 25.8
== END 2025-03-11 12:16 | disposition home or self-care (01) ==
LOC: FER 11:24
DX: B02.9 Zoster without complications (principal); R21 Rash and other nonspecific skin eruption; R19.7 Diarrhea, unspecified
CPT/HCPCS: 99283-25